=== PATIENT | female | born 1970 | race Caucasian/White ===

== ENCOUNTER 2024-11-05 10:41 | Outpatient (REF) | payer OTHER, SELFPAY ==
--- OUTSIDE RECORDS SUMMARY | 2024-11-05 13:00 | XMS_ITS | Clinical Summary ---
Author Organization [facility] Address [address] [place] [address] Care Team Providers Care Petroleum Engineer Name Role Phone Cuauhtemoc Cuba DO, Diana Primary Care Provider + Allergies Active Allergy Reactions Criticality Noted Date Comments Duloxetine Itching 08/15/2023 Hydrocodone Unknown 08/15/2023 Hydrocodone-Acetaminophen Unknown 08/15/2023 Oxycodone Unknown 08/15/2023 Medications cetirizine (ZyrTEC) 10 mg tablet Take 10 mg by mouth daily as needed for seasonal allergies. 9 Active clobetasoL 0.05 % lotion Apply 1 Application topically to the affected area 2 times a day. 0 Active NAPROXEN ORAL Take 500 mg by mouth. 5 Active multivit-min/fe rrous fumarate (MULTI VITAMIN ORAL) Take 1 tablet by mouth once a day. Active omega 0-isy-qnh-fish oil (Fish OiL) 1,000 mg (120 mg-180 mg) capsule Take by mouth. Activ e venlafaxine (EFFEXOR) 75 mg tablet TAKE 1 TABLET (75 MG TOTAL) BY MOUTH EVERY DAY 90 tablet 4 Active Active Problems Problem Noted Date Diagnosed Date Nonintractable headache 08/15/2023 Assessment & Plan (08/15/2023 12:53 PM EST): Reporting headaches in the last few months, no h/o migraines. No red flags, neuro exam normal, last headache was 1 week ago, encouraged to record headache diary, cont Tylenol alternating with Aleve with food, advised to seek the ER with any thunder clap headache, will check labs and sed rate, advised adequate hydration, sleep, avoid caffeine, return in 1 month for follow up or sooner with any worsening sx. 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 Positive RYANNE (antinuclear antibody) 08/13/2023 Polyarthralgia 08/13/2023 Loss of taste 08/13/2023 Pruritus of vagina 08/13/2023 Living accommodation issues 08/13/2023 Memory difficulties 08/13/2023 Menorrhagia 08/13/2023 Mucositis oral 08/13/2023 History of dry mouth 08/13/2023 Insufficient supply of food 08/13/2023 Ganglion cyst 08/13/2023 Food insecurity 08/13/2023 Fatigue 08/13/2023 Elevated erythrocyte sedimentation rate 08/13/20 Depression with anxiety 08/13/2023 Nightmares 08/13/2023 Dermatitis 08/13/2023 Dysmenorrhea 08/13/2023 Elevated C-reactive protein (CRP) 08/13/2023 Left lumbar radiculopathy 08/13/2023 Cutaneous candidiasis 06/11/2015 De Quervain's tenosynovitis, right 06/08/2015 Tendinitis of thumb 05/28/2015 Lateral epicondylitis of left elbow 02/10/2010 Hay fever 11/08/2009 Asthma 11/08/2009 Resolved Problems Problem Noted Date Diagnosed Date Resolved Date Right knee pain 08/13/2023 08/13/2023 Strain of insertion of tendo n of hamstring muscle 10/09/2019 08/15/2023 Immunizations Name Administration Dates Next Due Influenza, Injectable, Quadr ivalent, Preservative Free 08/01/2021,06/18/2020,06/30/2016,2014 Influenza, Quadrivalent, Rec ombinant, Injectable, PF 08/15/2022 Influenza, Trivalent, MDV, Injectable 08/01/2021 Tetanus Toxoid, Reduced Diph theria Toxoid, and Acellular Pertussis Vaccine, Adsorbed 05/18/2021 Zoster Vaccine Recombinant 09/29/2021 Family History Medical History Relation Name Comments Other Other Uncle Family Hi story of ischemic heart disease Relation Name Status Comments Other Social History Tobacco Use Types Packs/Day Years Used Date Smoking Tobacco: Former Cigarettes 0.5 6 1 981 - 1987 Passive Smoke Exposure: Past Smokeless Tobacco: Never Tobacco Cessation:Counseling Given: Not Answered Comments:: Alcohol Use Standard Drinks/Week Comments Not Currently 0 (1 standard drink = 0.6 oz pur e alcohol) Comments No Sex and Gender Information Value Date Recorded Sex Assigned at Female 07/25/2023 6:58 PM EDT Legal Sex Female 12:13 AM EDT Gender Identity Female 07/25/2023 6:58 PM EDT Sexual Orientation Straight 07/25/2023 6: 58 PM EDT Last Filed Vital Signs Vital Sign Reading Time Taken Comments Blood Pressure 122/82 08/15/2023 11:57 AM EST Pulse 96 08/15/2023 11:57 AM EST Temperature 36.4 ??C (97.5 ??F) 08/15/2023 11:[address] Respiratory Rate - - Oxygen Saturation 96% 08/15/2023 11:57 AM EST Inhaled Oxygen Concentration - - Weight 103 kg (227 lb) 08/15/2023 11:57 AM EST Height 154.9 cm (5' 1 ) 08/15/2023 11:57 AM EST Body Mass Index 42.89 08/15/2023 11:57 AM EST Plan of Treatment Health Maintenance Due Date Last Done Comments Cervical Cancer Screening 1970 Cologuard 1969 FOBT / Fit Test 1970 HIV Screening 1970 HPV and Pap Smear 1969 Hepatitis C Screening 1970 Pap Smear 1969 Sigmoidoscopy 1969 Pneumococcal Vaccine: Pediat daryl (0-5 Years) and At-Risk Patients (6-64 Years) (1 of 2 - PCV) 1975 Hepatitis B Vaccines (1 of 3 - 19+ 3-dose series) 1988 Zoster Vaccines (2 of 2) 11/24/2021 09/29/2021 COVID-19 Vaccine (4 - 2023-2 5 season) 2024 08/01/2021, 01/24/2021, 01/02/2021 Influenza Vaccine (#1) 2024 2, 08/01/2021, 08/01/2021, Additional history exists Mammogram 09/25/2024 09/25/2022, 11/0 12/2020, 05/17/2020 Alcohol/Substance Use Screening 10/08/2024 Depression Evaluation 10/08/2024 Social Drivers of Health Geraldine ual Screening 10/08/2024 Colon Cancer Screening 05/31/2030 Colonoscopy 05/31/2030 05/31/2020 DTaP,Tdap,and Td Vaccines (2 - Td or Tdap) 05/18/2031 05/18/2021 RSV Vaccine (60+ years old a nd patients) (1 - 1-dose 75+ series) 2044 Procedures * Due to [place] [employer] law, this organization might not be sharing negative HIV tests. Procedure Name Priority Date/Time Associated Diagnosis Comments [facility] SCREENING DIGITAL MAMMO Routine 09/25/2022 11:45 AM EST from Last 3 Months or Most Recently Relevant to Health Maintenance Results * Due to [place] [employer] law, this organization might not be sharing negative HIV tests. * [facility] Screening Digital Mammogram (09/25/2022 11:45 AM EST) Anatomical Region Laterality Modality Breast Mammography 09/25/2022 11:3 0 AM EST Narrative 10/03/2022 8:58 AM EST ? DEPARTMENT OF RADIOLOGY Patient: YOLANDA CARDOZO ? Unit #: [id number] Ordering MD: BROOKE PEDROR DO ? : 1970 Procedure: Digital Mammo Screen ? Age: 52 Location: MAMMO ? Exam Date: 09/25/22 Status: REG CLI ? Room/Bed: Primary MD: GUANAKITO ZANE DO ?Patient ?Order: [id number] Additional Copy: ??GUANAKITOPAULAZANE DO - #[id number] - DIGSCRMAM BILATERAL DIGITAL TOMOSYNTHESIS SCREENING MAMMOGRAM WITH CAD: 09/25/2022 CLINICAL: Routine. Digital 2D mammogram, synthesized 2D views and 3D Tomosynthesis views were obtained. Current study was also evaluated with a Computer Aided Detection (CAD) system. Comparison is made to prior exams. There are scattered areas of fibroglandular density. There is a stable benign mass in the left breast. ??There also are ??stable benign calcifications in the left breast. No significant masses, calcifications, or other findings are seen ??in either breast. IMPRESSION: BENIGN There is no mammographic evidence of malignancy. A 1 year screening mammogram is recommended. ?? This exam was interpreted at [place], [place]. ?? POI: [place], [place]. Electronically signed by: Alyssa Roman M.D. aa/penrad:09/30/2022 13:51:51 letter sent: A-2 Normal Benign Mammogram BI-RADS: 2 Benign ?? PAULA Procedure Note Alyssa Roman MD - 07/04/2023 DEPARTMENTOF RADIOLOGY Kennedi t: YOLANDA CARDOZO Unit #:[id number] Ordering MD: ZANE PEDRO DO :1970 Procedure: Digital Mammo Screen Age:52 Location: MAMMO ExamDate: 09/25/22 Status: [facility]/Bed: Primary MD: ZANE PEDRO DO PatientAcct #: [id number] Order:[id number] Additional Copy: ZANE PEDRO DO - #[id number] - DIGSCRMAM BILATERAL DIGITAL TOMOSYNTHESIS SCREENING MAMMOGRAM WITH CAD: 09/25/2022 CLINICAL: Routine. Digital 2D mammogram, synthesized 2D views and 3D Tomosynthesis views were obtained. Current study was also evaluated with a Computer Aided Detection (CAD) system. Comparison is made to prior exams. There are scattered areas of fibroglandular density. There is a stable benign mass in the left breast. There also are stable benign calcifications in the left breast. No significant masses, calcifications, or other findings are seen in either breast. IMPRESSION: BENIGN There is no mammographic evidence of malignancy. A 1 year screening mammogram is recommended. This exam was interpreted at [place], [place]. POI: [place]. Electronically signed by: Alyssa Roman M.D. aa/jacqueline:09/30/2022 13:51:51 letter sent: A-2 Normal Benign Mammogram BI-RADS: 2 Benign PAULA us Zane Guanakito DO IMG BI PROCEDURES Final Result from Last 3 Months or Most Recently Relevant to Health Maintenance [place] [address] [address] [place] [address] Advance Directives Documents on File Type Date Recorded Patient Steel Plate Caulker Expl anation Health Care Proxy 02/23/2023 12/08/2022 Care Teams Petroleum Engineer Relationship Specialty Start Date End Date Yaneth Posadas DO [address] [place] [address] PCP - General Family Medicine 07/23/23
--- OUTSIDE RECORDS SUMMARY | 2024-11-05 13:00 | XMS_ITS | Referral Summary ---
Author Organization [facility] Address [address] [place] [address] Care Team Providers Care Bottom Scrubber Name Role Phone Cuauhtemoc Cuba DO, Diana [...] by mouth once a day. Active omega 5-vjg-hve-fish oil (Fish OiL) 1,000 mg (120 mg-180 [...] Vaccine, Adsorbed 05/18/2021 Zoster Vaccine Recombinant 09/29/2021 Social History Tobacco Use Types Packs/Day Years Used Date Smoking Tobacco: Former Cigarettes 0.5 6 1 981 - 1986 Passive Smoke Exposure: Past Smokeless Tobacco: Never [...] 08/15/2023 11:57 AM EST Plan of Treatment Not on file Procedures * Due to [place] [employer] law, this organization might not be sharing negative HIV tests. Procedure Name Priority Date/Time Associated Diagnosis Comments [facility] SCREENING DIGITAL MAMMO Routine 09/25/2022 11:45 AM EST from Last 3 Months or Most Recently Relevant to Health Maintenance Results * Due to [place] [employer] law, this organization might not be sharing negative HIV tests. * [facility] Screening Digital Mammogram (09/25/2022 11:45 AM EST) Anatomical Region Laterality Modality Breast Mammography 09/25/2022 11:3 0 AM EST Narrative 10/03/2022 8:58 AM EST ? DEPARTMENT OF RADIOLOGY Patient: YOLANDA CARDOZO ? Unit #: [id number] Ordering MD: PARDEEP CALABRESE DO ? : 1970 Procedure: Digital Mammo Screen ? Age: 52 Location: MAMMO ? Exam Date: 09/25/22 Status: REG CLI ? Room/Bed: Primary MD: PARDEEP CALABRESE DO ?Patient ?Order: [id number] Additional Copy: ??PARDEEP CALABRESE DO - [id number] - DIGSCRMAM BILATERAL DIGITAL TOMOSYNTHESIS SCREENING MAMMOGRAM [...] recommended. ?? This exam was interpreted at [place], [place]. ?? POI: [place], [place]. Electronically signed by: Alyssa Roman M.D. aa/jacqueline:09/30/2022 13:51:51 letter sent: A-2 Normal Benign Mammogram BI-RADS: 2 Benign ?? PAULA Procedure Note Alyssa Roman MD - 07/04/2023 DEPARTMENTOF RADIOLOGY Kennedi t: YOLANDA CARDOZO Unit #:[id number] Ordering MD: PARDEEP CALABRESE DO :1970 Procedure: Digital Mammo Screen Age:52 Location: MAMMO ExamDate: 09/25/22 Status: REG [facility]/Bed: Primary MD: PARDEEP CALABRESE DO PatientAcct #: [id number] Order:DIGSCAM Additional Copy: PARDEEP CALABRESE DO - #[id number] - DIGSCRMAM BILATERAL DIGITAL TOMOSYNTHESIS SCREENING MAMMOGRAM [...] is recommended. This exam was interpreted at [place], [place]. POI: [place]. Electronically signed by: Alyssa pike/jacqueline:09/30/2022 13:51:51 letter sent: A-2 Normal Benign Mammogram BI-RADS: 2 Benign PAULA Pardeep Calabrese DO IMG BI PROCEDURES Final Result from Last 3 Months or Most Recently Relevant to Health Maintenance Insurance [facility] Advance Directives Documents on File Type Date Recorded Patient Human Resource Assistant Expl anation Health Care Proxy 02/23/2023 12/08/2022 Care Teams Bottom Scrubber Relationship Specialty Start Date End Date Yaneth Posadas DO [address] [place] [id number] PCP - General Family Medicine 07/23/23
--- OUTSIDE RECORDS SUMMARY | 2024-11-05 13:00 | XMS_ITS | Clinical Summary ---
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 Active ibuprofen (ADVIL,MOTRIN) 600 mg tablet Active lidocaine (Lidocaine Viscous) 2 % solution Active hydrOXYzine HCL (ATARAX) 25 mg tablet Take 1 tablet (25 mg total) by mouth every 8 (eight) hours if needed for anxiety. 45 each 08/11/2024 Active pramipexole (MIRAPEX) 0.125 mg tablet Take 1 tablet (0.125 mg total) by mouth at bedtime. 90 tablet 1 08/11/2024 Active venlafaxine (EFFEXOR) 75 mg tablet Take 2 tablets (150 mg total) by mouth 1 (one) time each day. 180 tablet 1 08/11/2024 Active Active Problems Problem Noted Date Diagnosed Date Restless leg syndrome 08/11/2024 Anxiety 07/03/2024 Depression 07/03/2024 High C-reactive protein 07/03/2024 Pruritus 07/03/2024 Chronic bilateral low back pain with left-sided sciatica 07/25/2023 Overview (11/23/2023): Last Assessment & Plan: Ms. Pham has chronic left leg pain and numbness in an S1 distribution but says that it is much better than before her surgery. She has been troubled by increasing low back pain. Her x-rays show significant loss of disc height at L5-S1 without any instability. We talked about lumbar fusion being the last resort for chronic low back pain. I gave her some information on acupuncture and she continues to do her home exercises that she learned in physical therapy. She is going to get in touch with her chiropractor. We talked about appropriate doses of NSAIDs and getting as close as possible to her ideal body weight. She will follow-up with us on an as-needed basis. Other forms of stomatitis 12/19/2021 Herpes labialis 12/19/2021 Lumbar radiculopathy 12/19/2021 Overview (11/23/2023): Last Assessment & Plan: Ms. Pham is now approximately 2 weeks status post reexploration and left-sided L5-S1 minimally invasive microdiscectomy. She has had relief but still has some left leg pain and numbness but the pain is not nearly as bad as it was before surgery nor in the early postoperative period. We discussed nerve root healing, the time course, and I reassured her. She asked for a refill on the tramadol and I will prescribe that. She can follow-up with us in the office on an as-needed basis. Numbness and tingling in left hand 12/19/2021 Overview (11/23/2023): Last Assessment & Plan: Patient also mentions she has noticed left hand/finger numbness tingling on and off, at this point it is mild, she is not seeking treatment order EMG/nerve conduction study for diagnosis. She is not experiencing neck pain, radicular arm pain, right sided symptoms, weakness. It does not sound like a cervical radiculopathy. She states she mentioned it in case it was related to her left leg pain. I did explain common symptoms of carpal tunnel, she will pay better attention at home to what flares up her symptoms, if it is worsening she will call for evaluation, possible PT, wrist splint, EMG/nerve conduction study. All questions answered. COVID-19 10/25/2020 Dysmenorrhea 10/09/2019 Loss of taste 10/09/2019 Pain in joint 10/09/2019 Elevated C-reactive protein 10/09/2019 Forgetfulness 10/09/2019 Encounters Date Type Department Care Team Description 10/02/2024 9:11 AM EST - 10/02/2024 11:59 PM EST Hospital Encounter Radiology Department - [address] [phone] Screening breast examination Discharge Disposition: Home or Self Care 08/11/2024 10:00 AM EST Office Visit [facility] - [address] [phone] Tracie Espinoza PA Anxiety (Primary Dx); Restless leg syndrome; Lesion of finger; Forgetfulness from Last 3 Months Immunizations Name Administration Dates Next Due Influenza Quadravalent, tony mbinant, 0.5ml, preservative free (Flublok) 18yo and older 08/15/2022 Influenza Quadrivalent, 0.5m l, preservative free (Fluarix; FluLaval; Fluzone) ages 6mo and older (Afluria) 3yo and older 08/01/2021,06/18/2020,06/30/2016,2014 Influenza trivalent, with preservative (Fluzone; Afluria) 6mo and older 08/01/2021 Influenza, Unspecified 06/13/2024 Tdap Tetanus diptheria acell ular pertussis (Boostrix; Adacel) 7yo and older 05/18/2021 Zoster recombinant (Shingrix ) 19yo and older 09/29/2021 Surgical History Surgery Date Site/Laterality Comments SECTION 1994 PROCEDURE: MT DELIVERY ONLY OTHER SURGICAL HISTORY PROCEDURE: MT CLTX RDL SHFT FX&CLTX DISLC DSTL RAD/ULN JT; COMMENT: Repair of broken left radial head, 2005, 2006, 2007 OTHER SURGICAL HISTORY 03/30/2020 PROCEDURE: MT LAMNOTMY INCL W/DCMPRSN NRV ROOT 1 INTRSPC LUMBR; COMMENT: Left L5-S1 minimally invasive discectomy Medical History Medical History Date Comments Mild intermittent asthma, uncomplicated DX:Mild intermittent asthma, uncomplicated; COMMENT: rarely need her inhaler Family History Medical History Relation Name Comments Other cancer Maternal Grandfather Emphysema Maternal Grandmother Mental illness Mother Relation Name Status Comments Maternal Grandfather Maternal Grandmother Mother Social History Tobacco Use Types Packs/Day Years Used Date Smoking Tobacco: Former Cigarettes Q uit: 10/08/1991 Smokeless Tobacco: Never Alcohol Use Standard Drinks/Week Comments Yes 0 (1 standard drink = 0.6 oz pur e alcohol) Sex and Gender Information Value Date Recorded Sex Assigned at Not on file Gender Identity Not on file Sexual Orientation Not on file Job Start Date Occupation Industry Not on file Not on file Not on file Obstetrics History Para Term AB IAB SAB Ectopic Multiple Livin g Live Births 4 4 4 4 Date Outcome GA Total Labor Labor/2nd/3rd Weight Sex Type Anes PTL Sonia A1 A5 Name Clin Term Term Term Term Last Filed Vital Signs Vital Sign Reading Time Taken Comments Blood Pressure 138/91 08/11/2024 9:51 AM EST Pulse 70 08/11/2024 9:51 AM EST Temperature 36.7 ??C (98.1 ??F) 08/11/2024 9:51 AM ES T Respiratory Rate 17 08/11/2024 9:51 AM EST Oxygen Saturation - - Inhaled Oxygen Concentration - - Weight 96.2 kg (212 lb) 08/11/2024 9:51 AM EST Height 154.9 cm (5' 1 ) 08/11/2024 9:51 AM EST Body Mass Index 40.06 08/11/2024 9:51 AM EST Plan of Treatment Upcoming Encounters Date Type Department Care Team (Late st Contact Info) Description 12/11/2024 11:30 AM EST Office Visit Adult Medicine [address] [phone] Sylvia Tejada MD [address] [place] [phone] 03/23/2025 10:30 AM EDT Consult Bariatric Surgery - [address] [place] [address] Maria E Duong PA [address] [facility] [address] [place] [address] Health Maintenance Due Date Last Done Comments Pneumococcal Vaccine: Pediatrics (0 to 5 Years) and At-Risk Patients (6 to 64 Years) (1 of 2 - PCV) 1975 Hepatitis B Vaccines (1 of 3 - 19+ 3-dose series) 1988 Cervical Cancer Screening: Pap Smear 1990 Zoster Vaccines (2 of 2) 11/24/2021 09/29/2021 Colorectal Cancer Screening: Colonoscopy 09/10/2022 HIV Screening 09/10/2022 Hepatitis C Screening 09/10/2022 Social Influencers of Health Screening 09/10/2022 COVID-19 Vaccine ( season) 2024 08/01/2021, 01/24/2021, 01/02/2021 Depression Screening 06/13/2025 06/13/2024 Breast Cancer Screening 10/02/2026 10/02/2024 Cholesterol Screening (Lipid Panel) 04/07/2029 04/07/2024 DTaP,Tdap,and Td Vaccines (2 - Td or Tdap) 05/18/2031 05/18/2021 Influenza Vaccine Completed 06/13/2024, , 08/01/2021, Additional history exists HIB Vaccines Aged Out No longer eligi ble based on patient's age to complete this topic HPV Vaccines Aged Out No longer eligi ble based on patient's age to complete this topic Hepatitis A Vaccines Aged Out No long er eligible based on patient's age to complete this topic IPV Vaccines Aged Out No longer eligi ble based on patient's age to complete this topic MMR Vaccines Aged Out No longer eligi ble based on patient's age to complete this topic Meningococcal ACWY Vaccine Aged Out N o longer eligible based on patient's age to complete this topic RSV Immunization Patients Under 20 months Aged Out No longer eligible based on patient's age to complete this topic Varicella Vaccines Aged Out No longer eligible based on patient's age to complete this topic Procedures Procedure Name Priority Date/Time Associated Diagnosis Comments MG MAMMO DIGITAL SCREENING W GET BILAT Routine 10/02/2024 9:24 AM EST Screening breast examination TRIIODOTHYRONINE FREE Routine 08/11/2024 11:25 AM EST Forgetfulness FREE THYROXINE WITH REFLEX TO FREE TRIIODOTHYRONINE Routine 08/11/2024 11:25 AM EST Forgetfulness THYROID STIMULATING HORMONE WITH REFLEX TO FREE T4 AND FREE T3 Routine 08/11/2024 11:25 AM EST Forgetfulness VITAMIN B12 Routine 08/11/2024 11:25 AM EST Forgetfulness FOLATE Routine 08/11/2024 11:25 AM EST Forgetfulness HM DEPRESSION SCREENING Routine 06/13/2024 LIPID PANEL Routine 04/07/2024 from Last 3 Months or Most Recently Relevant to Health Maintenance Results * MG Mammo Digital Screening w Get bilat (10/02/2024 9:24 AM EST) Anatomical Region Laterality Modality Breast Bilateral Mammography 10/14/2024 6:13 PM EST Impressions 10/14/2024 6:29 PM EST BILATERAL BREASTS: Negative, no evidence of malignancy. Normal interval follow- up is recommended in 12 months. BREAST DENSITY: B - There are scattered areas of fibroglandular density. BI-RADS CATEGORY: 1 - NEGATIVE RECOMMENDATION: Screening bilateral mammogram is recommended in 1 year. Mammo Location: [facility], [address] [place] [address], [phone], . -------- FINAL REPORT -------- Dictated By: Koki Lang Dictated Date: 10/14/2024 18:13 ET Assigned Physician: Koki Lang Reviewed and Electronically Signed By: Koki Lang Signed Date: 10/14/2024 18:29 ET Workstation ID: [id number] Transcribed By: Self Edit Transcribed Date: 10/14/2024 18:16 ET Narrative 10/14/2024 6:29 PM EST STUDY: Bilateral screening mammography with tomosynthesis and CAD TECHNIQUE: Bilateral full-field digital screening mammography is obtained and read in conjunction with computer-aided detection. ??Tomosynthesis as well as 2-D C view imaging were obtained. ?? COMPARISON: Comparison made to multiple prior, most recent September 25, 2022, and most remote May 17, 2020. BILATERAL BREASTS: No significant masses, suspicious calcifications or other abnormalities are seen in either breast. Procedure Note Koki Lang MD - 10/14/2024 STUDY: Bilateral screening mammography with tomosynthesis and CAD TECHNIQUE: Bilateral full-field digital screening mammography is obtainedand read in conjunction with computer-aided detection. Tomosynthesis aswell as 2-D C view imaging were obtained. COMPARISON: Comparison made to multiple prior, most recent September, and most remote May 17, 2020. BILATERAL BREASTS: No significant masses, suspicious calcifications orother abnormalities are seen in either breast. IMPRESSION: BILATERAL BREASTS: Negative, no evidence of malignancy. Normal intervalfollow-up is recommended in 12 months. BREAST DENSITY: B - There are scattered areas of fibroglandular density. BI-RADS CATEGORY: 1 - NEGATIVE RECOMMENDATION: Screening bilateral mammogram is recommended in 1 year. Mammo Location: [facility], [address] [place] [address], [phone], . -------- FINAL REPORT -------- Dictated By: Koki Lang Dictated Date: 10/14/2024 18:13 ET Assigned Physician: Koki Lang Reviewed and Electronically Signed By: Koki Lang Signed Date: 10/14/2024 18:29 ET Workstation ID: [id number] Transcribed By: Self Edit Transcribed Date: 10/14/2024 18:16 ET Tracie RAY IMG BI PROCEDURES * (ABNORMAL) Thyroid stimulating hormone with reflex to free t4 and free t3 (08/11/2024 11:25 AM EST) TSH 4.02(H) 0.40 - 4.00 mcIU/mL LAB CHEMISTRY METHOD 08/11/2024 4:09 PM EST [facility] Blood Venous blood specimen / Unknown Venipuncture / Unknown 08/11/2024 11:25 AM EST 08/11/2024 11:21 AM EST Tracie RAY LAB BLOOD ORDERABLES Performing Organization Address City/[facility]/ZIP Co de Phone Number [facility] [address] [place] [address], * Free thyroxine with reflex to free triiodothyronine (08/11/2024 11:25 AM EST) Free T4 0.98 0.70 - 1.80 ng/dL LAB CHEMISTRY METHOD 08/11/2024 4:35 PM EST [facility] Blood Venous blood specimen / Unknown Venipuncture / Unknown 08/11/2024 11:25 AM EST 08/11/2024 11:21 AM EST Tracie RAY LAB BLOOD ORDERABLES [facility] [address] [place] [address], * Triiodothyronine free (08/11/2024 11:25 AM EST) T3, Free 285 230 - 420 pcg/dL LAB CHEMISTRY METHOD 08/11/2024 5:01 PM EST [facility] Blood Venous blood specimen / Unknown Venipuncture / Unknown 08/11/2024 11:25 AM EST 08/11/2024 11:21 AM EST Tracie RAY LAB BLOOD ORDERABLES Performing Organization Address [facility]/ZIP Co de Phone Number [facility] [address] [place] [address], [place] [phone] * (ABNORMAL) Folate (08/11/2024 11:25 AM EST) [facility] Folate >20.0(H) 2.8 - 17.0 ng/ml LAB CHEMISTRY METHOD 08/11/2024 4:09 PM EST [facility] Blood Venous blood specimen / Unknown Venipuncture / Unknown 08/11/2024 11:25 AM EST 08/11/2024 11:21 AM EST Tracie RAY LAB BLOOD ORDERABLES Performing Organization Address [facility]/ZIP Co de Phone Number [facility] [address] [place] [address], [place] [phone] * (ABNORMAL) Vitamin B12 (08/11/2024 11:25 AM EST) [facility] Vitamin B-12 >2,000(H) 250 - 900 pcg/mL LAB CHEMISTRY METHOD 08/11/2024 4:09 PM EST [facility] Blood Venous blood specimen / Unknown Venipuncture / Unknown 08/11/2024 11:25 AM EST 08/11/2024 11:21 AM EST Tracie RAY LAB BLOOD ORDERABLES Performing Organization Address City/[facility]/ZIP Co de Phone Number [facility] [address] [place] [address], [place] [phone] * Hm Depression Screening (06/13/2024) [facility] Depression Screening Abstracted Historical Provider MD DAVIS RAPP E * Lipid panel (04/07/2024) LDL/HDL Ratio 3 0 - 4 Triglycerides 114 0 - 150 mg/dL Cholesterol 170 0 - 200 mg/dL HDL 50 40 mg/dL LDL Cholesterol 98 0 - 100 mg/dL Blood Venous blood specimen / Unknown Historical Provider LAB BLOOD ORDERAB LES from Last 3 Months or Most Recently Relevant to Health Maintenance Care Teams 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
[2024-11-05 13:12] LABS: Vitamin B12 > 2000 pg/mL (200-900)
== END 2024-11-05 10:42 | disposition home or self-care (01) ==
LOC: HO.LAB 10:41
PROVIDERS: Visit Provider Psychiatry & Neurology Neurology
DX: G31.84 Mild cognitive impairment of uncertain or unknown etiology (principal)
CPT/HCPCS: 36415; 82607